=== PATIENT | female | born 2000 | race Caucasian/White ===

== ENCOUNTER 2024-08-04 09:35 | Outpatient (CLI) | payer BC, SELFPAY | END 2024-08-04 09:36 | disposition home or self-care (01) | LOC: NFLDREF 08-08 02:50 | PROVIDERS: PCP Physician Assistant Medical; Referring Provider Physician Assistant Medical; Visit Provider Obstetrics & Gynecology | DX: R53.83 Other fatigue (principal); R63.4 Abnormal weight loss; L65.9 Nonscarring hair loss, unspecified; N92.0 Excessive and frequent menstruation with regular cycle | CPT/HCPCS: 80061; 84443 ==

== ENCOUNTER 2025-09-07 09:19 | Outpatient (CLI) | payer BC, SELFPAY ==
[2025-09-09 15:29] LABS: Pap Test Digital Imaging Done
== END 2025-09-07 09:20 | disposition home or self-care (01) ==
LOC: FRMREF 09:31
PROVIDERS: PCP Physician Assistant Medical; Visit Provider Physician Assistant Medical
DX: Z01.419 Encounter for gynecological examination (general) (routine) without abnormal findings (principal)
CPT/HCPCS: 88141; 88142; 88175

== ENCOUNTER 2025-10-01 15:45 | Outpatient (CLI) | payer BC, SELFPAY | END 2025-10-01 15:46 | disposition home or self-care (01) | LOC: NFLDREF 10-08 13:26 | PROVIDERS: PCP Physician Assistant Medical; Referring Provider Physician Assistant Medical | DX: N30.01 Acute cystitis with hematuria (principal) | CPT/HCPCS: 87086; 87186 ==